=== PATIENT | female | born 1975 | race Two or more races ===

== ENCOUNTER 2020-04-19 03:56 | Emergency (ER) | payer SELFPAY ==
[~2020-04-19] VITALS: Ht 175.3 cm; Wt 81.6 kg
[2020-04-19] MEDS ORDERED: ONDANSETRON HCL/PF 4 MG/2 ML VIAL ONE (04:10)
--- NOTE | 2020-04-19 04:18 | NUR ---
PATIENT CAME TO ER BED 10 C/O MIDSTERNAL CHEST PAIN THAT IS NON-RADIATING. PER EMS REPORT, PATIENT HAD TAKEN HEROIN AND PATIENT RECEIVED NARCAN ON THE FIELD. PATIENT STATES THAT SHE WAS GIVEN COMPRESSION BY A FAMILY MEMBER BECAUSE THEY THOUGHT THAT SHE WAS . AAOX4. NO SOB. BREATHING EVENLY AND UNLABORED ON ROOM AIR. CONNECTED TO MANAGER CORPORATE RESPONSIBILITY.
[2020-04-19 04:21] LABS: BASOPHILS % (AUTO) 0.4 % (0.0-2.0); EOSINOPHILS % (AUTO) 0.8 % (0.0-6.0); HEMATOCRIT 39 % (33-45); HEMOGLOBIN 13.6 g/dL (11.5-14.8); LYMPHOCYTES # (AUTO) 1.7 /CMM (0.8-4.8); LYMPHOCYTES % (AUTO) 16.8 % (20.0-44.0); MEAN CORPUSCULAR HGB CONC 35 g/dl (31.0-36.0); MEAN CORPUSCULAR VOLUME 98 fL (82-100); MONOCYTES # (AUTO) 0.5 /CMM (0.1-1.30); MONOCYTES % (AUTO) 4.9 % (2.0-12.0); NEUTROPHILS # (AUTO) 7.7 /CMM (1.8-8.9); NEUTROPHILS % (AUTO) 77.1 % (43.0-81.0); PLATELET COUNT (AUTO) 272 /CMM (150-450); RED BLOOD CELL COUNT(AUTO) 3.99 MIL/uL (4.0-5.2)
--- NOTE | 2020-04-19 04:24 | NUR ---
BLOOD DRAWN AND URINE TAKEN TO LAB.
[2020-04-19 04:30] LABS: CALCIUM, SERUM 8.8 mg/dL (8.5-10.1); CARBON DIOXIDE 27 mmol/L (21-32); CHLORIDE 102 mmol/L (98-107); GLUCOSE 165 mg/dL (74-106); POTASSIUM 2.9 mmol/L (3.5-5.1); SODIUM SERUM 138 mmol/L (136-145); UREA NITROGEN, BLOOD 12 mg/dL (7-18)
[2020-04-19] MEDS ORDERED: ONDANSETRON HCL/PF - ER 4 MG/2 ML VIAL IV ONE (04:30)
[2020-04-19 04:35] VITALS: BP 113/73
[2020-04-19 04:36] LABS: ACETAMINOPHEN 0 ug/ml (10-30); ALANINE AMINOTRANSFERASE 57 U/L (12-78); ALBUMIN 3.3 g/dL (3.4-5.0); ALCOHOL, BLOOD < 3 mg/dL (0-0); ALKALINE PHOSPHATASE 68 U/L (46-116); ASPARTATE AMINOTRANSFERASE 40 U/L (15-37); BILIRUBIN,DIRECT 0.1 mg/dL (0.0-0.2); BILIRUBIN,TOTAL 0.6 mg/dL (0.2-1.0); SALICYLATE 1.7 mg/dL (2.8-20.0); TOTAL PROTEIN, SERUM 6.5 g/dL (6.4-8.2)
[2020-04-19 04:38] LABS: APPEARANCE,URINE Slightly Cloudy (CLEAR); BILIRUBIN,URINE Negative (NEGATIVE); BLOOD, URINE Large Ery/uL (NEGATIVE); COLOR,URINE Dark (YELLOW); KETONES,URINE Negative (NEGATIVE); LEUKOCYTE ESTERASE ,URINE Negative (NEGATIVE); NITRITE, URINE Negative (NEGATIVE); PH,URINE 5.5 (5.0-8.0); PROTEIN,URINE 100 mg/dl (NEGATIVE); UGLUCOSE 250 MG/DL mg/dL (NEGATIVE); UROBILINOGEN,URINE 0.2 EU/dL (0.2)
[2020-04-19] MEDS ORDERED: POTASSIUM CHLORIDE 20 MEQ TAB.PRT.SR PO ONE ×2 (05:00→05:12)
[2020-04-19] MEDS ORDERED: POTASSIUM CHLORIDE 10 MEQ TABLET.SA ONE (05:12)
[2020-04-19] MEDS ORDERED: IBUPROFEN 600 MG TABLET PO ONE ×2 (05:12→05:30)
--- NOTE | 2020-04-19 05:35 | NUR ---
Patient does not wish to proceed with medical care recommended by Dr. Reese. Patient given information related to possible complications, up to and including , which could occur as a result of leaving the hospital at this time. Patient verbalizes understanding of risks involved due to leaving against medical advice. Patient has signed AMA form.
[2020-04-19 06:04] LABS: BACTERIA,URINE Few /HPF (None Seen); RBC,URINE 21-50 /HPF (0-2)
== END 2020-04-19 05:36 | disposition left against medical advice (07) ==
LOC: ER 03:57
DX: T40.1X1A Poisoning by heroin, accidental (unintentional), initial encounter (principal); R07.89 Other chest pain; R94.31 Abnormal electrocardiogram [ECG] [EKG]; E87.6 Hypokalemia; Y92.89 Other specified places as the place of occurrence of the external cause
CPT/HCPCS: 36415; 71045; 80048; 80076; 80305; 80307; 80329; 81001; 84484; 84702; 85025; 93005; 96374; 99291; G0480; J2405 ×2; 81000-TC